=== PATIENT | male | born 1930 | race Caucasian/White ===

== ENCOUNTER → 2016-09-20 | Outpatient (CLI) | payer MEDICARE | LOC: LAB.O 13:08 | PROVIDERS: ATTEND Internal Medicine Nephrology | DX: N18.4 Chronic kidney disease, stage 4 (severe) (principal); N17.9 Acute kidney failure, unspecified; R53.81 Other malaise ==

== ENCOUNTER → 2016-11-02 | Outpatient (CLI) | payer MEDICARE | END | disposition home or self-care (01) | LOC: GMAB 16:43 | PROVIDERS: ATTEND Family Medicine | DX: R63.4 Abnormal weight loss (principal) ==

== ENCOUNTER → 2016-11-07 | Outpatient (CLI) | payer MEDICARE | END | disposition home or self-care (01) | LOC: GMAB 16:55 | PROVIDERS: ATTEND Family Medicine | DX: R06.02 Shortness of breath (principal) ==

== ENCOUNTER 2016-11-15 17:21 | Observation (INO) | payer MEDICARE ==
--- NOTE | 2016-11-15 18:00 | ED.PDOC ---
History of Present Illness - General Chief Complaint: Trauma Stated Complaint: FALL Time Seen by Provider: 11/15/16 17:54 Source: family Exam Limitations: other - PT DEMENTED - History of Present Illness Initial Comments: STATES SHE THINKS PT TRIPPED AND FELL ONTO HARDWOOD FLOORS. NO LOC Timing/Duration: other - TODAY Severity: mild Improving Factors: nothing Worsening Factors: nothing Associated Symptoms: denies symptoms Allergies/Adverse Reactions: Allergies NO KNOWN ALLERGY Allergy (Unverified 11/15/16 18:02) Home Medications: Ambulatory Orders Lasix 11/15/16 Potassium Chloride 11/15/16 Review of Systems - Review of Systems Constitutional: Denies: chills, fever, weakness EENTM: Denies: eye pain, blurred vision, ear pain, mouth pain Respiratory: Denies: cough, short of breath Cardiology: Denies: chest pain, palpitations, syncope Gastrointestinal/Abdominal: Denies: abdominal pain, nausea, vomiting Genitourinary: States: no symptoms reported. Denies: dysuria, hematuria Musculoskeletal: States: other - MILD PAIN R ELBOW. Denies: back pain, neck pain Skin: States: other - SKIN TEARS R TEMPORAL REGION, R MAXILLA, R ELBOW Neurological: States: no symptoms reported, other - FAMILY REPORTS PT AT BASELINE Hematologic/Lymphatic: States: no symptoms reported Past Medical History (General) - Patient Medical History Hx Dementia: Yes Hx Cardiac Disorders: Yes Hx Congestive Heart Failure: No Hx Diabetes: No - Social History Hx Tobacco Use: No Family Medical History - Family History Father Family History: No Known Living Status: Still Living Physical Exam - Physical Exam General Appearance: Alert, Comfortable, Frail Eye Exam: bilateral normal Ears, Nose, Throat: hearing grossly normal, other - SMALL SUPERFICIAL SKIN TEARS R TEMPORAL AREA, R MAXILLARY AREA, NO BONY DEFORMITY OR EVIDENCE OF OTHER HEAD TRAUMA Neck: non-tender, full range of motion, normal inspection Respiratory: chest non-tender, lungs clear, normal breath sounds, other Cardiovascular/Chest: regular rate, rhythm, no edema, no murmur, other - NO EVIDENCE OF TRAUMA CHEST OR BACK Gastrointestinal/Abdominal: normal bowel sounds, soft, no organomegaly Extremity: normal range of motion, non-tender, other - PELVIS STABLE, NL ROM HIPS KIMBERLY NTTP Neurologic: casting assistant II-XII nml as tested, alert, normal mood/affect, other - DEMENTED BUT NON FOCAL Skin Exam: other - OCC AREAS OF ECCHYMOSIS C/W ASPIRIN USE, SKIN TEAR R ELBOW NO SUTURABLE LACERATIONS Lymphatic: no adenopathy Progress - Progress Progress: 11/15/16 19:42 D/W FAMILY THEY ARE AGREEABLE WITH OBSERVATION AND REPEAT CT IN AM. STATE THEY ARE DOING WELL AT HOME WITH HOMEHEALTH ASSISTANCE - EKG/XRAY/CT CT Ordered: Yes - HEAD SHOWS CHRONIC R SIDED SUBDURAL. 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
--- NOTE | 2016-11-15 19:08 | CT ---
PROCEDURE: Head CLINICAL HISTORY: 85 years Male FALL WITH HEAD TRAUMA COMPARISON: None. TECHNIQUE: Contiguous axial images obtained through the brain without IV contrast. FINDINGS: The ventricles and sulci are prominent consistent with atrophic changes. Microvascular ischemic changes. Shallow low density collection around the right frontal convexity which measures approximately 0.6 cm in maximum thickness. The appearance suggests a chronic subdural hematoma. There does not appear to be significant mass effect. No acute hemorrhage. Atherosclerotic calcifications. Prominence of the turbinates in the anterior nasal passages versus polypoid lesions. Clinical evaluation could be obtained. No fluid or significant mucosal thickening in the visualized paranasal sinuses. No depressed calvarial fractures. IMPRESSION: Shallow low density collection around the right frontal convexity suggesting a chronic subdural hematoma. No significant mass effect is visualized. Prominence of the turbinates in the anterior nasal passages versus polypoid lesions. Clinical evaluation could be obtained. Electronically signed by: Tee Hdez MD 11/15/2016 7:08 PM SOFTWARE DEVELOPER INTERN
--- NOTE | 2016-11-15 19:19 | CT ---
PROCEDURE: Cervical Spine CLINICAL HISTORY: 85 years Male FALL WITH HEAD TRAUMA. Generalized neck and head pain. COMPARISON: None. TECHNIQUE: Contiguous axial images obtained through the cervical spine without IV contrast. Coronal and sagittal reformatted images obtained. FINDINGS: Straightening of the normal lordosis. Vertebral body alignment is unremarkable. No acute fractures. Degenerative changes of the uncovertebral joints and facets. At C2-3, there is moderate to severe right neural foraminal stenosis. There otherwise does not appear to be significant spinal or foraminal stenosis. Bilateral pleural effusions are partially visualized. Atherosclerotic calcifications. IMPRESSION: No acute cervical spinal fracture is identified. Bilateral pleural effusions are partially visualized. Electronically signed by: Tee Hdez MD 11/15/2016 7:19 PM ENVIRONMENTAL SERVICES PROJECT MANAGER
[2016-11-15] MEDS ORDERED: CHLORHEXIDINE GLUCONATE 4 % 15 ML UD TOP ONE (20:40)
--- NOTE | 2016-11-15 21:07 | HP ---
HISTORY OF PRESENT ILLNESS: This 85 year-old white male is placed in the hospital for overnight observation and reevaluation in the morning because of blunt head injury noted at home. He was found by his family to be on the floor with the right side of his head bloody with a laceration. The patient has no recollection or memory of what happened nor is it specifically known as to how he fell. He has had progressive worsening dementia in recent months which unfortunately contributes to very poor memory anyway. He has been followed closely by Dr. Schwartz in the clinic as well as Dr. Sorto, detective bureau chief, and Dr. Davidson, windows application packager. His family is very supportive and are concerned about his general condition. Last evening he complained of some shortness of breath during the night and resulted in the not getting much sleep. They will require some additional assistance in caring for the patient at home, otherwise Retirement Facility may be an option. PAST MEDICAL HISTORY: Otherwise unremarkable except as it relates to this worsening dementia. PAST SURGICAL HISTORY: 1. Coronary artery bypass grafting. 2. Heart valve replacement. CURRENT MEDICATIONS: Please refer to nurses' notes for an up to date list of verified home medications. ALLERGIES: NONE KNOWN. FAMILY HISTORY: Unremarkable. SOCIAL HISTORY: He has worked in the [employer] for many years. He stopped smoking 20 to 30 years ago. REVIEW OF SYSTEMS: Significant weight loss of about 35 pounds in the last 2 months because of just not eating. Noticeably confused though still pleasant. No significant fever or chills. HEENT: Difficult to evaluate because of the patient's inability to fully respond. LUNGS: Worsening shortness of breath noted. ABDOMEN: Poor appetite. No vomiting. GENITOURINARY: No dysuria. EXTREMITIES: Losing some of the muscle mass and having difficulty walking with falling evident. NEUROLOGIC: Worsening confusion recently. PHYSICAL EXAMINATION: VITAL SIGNS: Afebrile, pulse 78, blood pressure 116/64, respirations 18, pulse oximetry 94% on room air. Weight 68 kilos. GENERAL: The patient is pleasant though noticeably confused. He does seem to remember the names of family members and he knows where he is at, but time is another issue. He has about a 1 inch laceration right yarsani region which will be cleansed by the E. R. physician and closed by Steri-Strips with glue. HEENT: Pupils are equal, regular and reactive to light. Buccal mucosa is fairly moist. NECK: Has fairly good range of motion with no tenderness evident. CHEST: Lungs have some diminished breath sounds with few rhonchi in the lateral lung denise. CARDIOVASCULAR: Heart tones regular with approximate grade 2 systolic ejection murmur. ABDOMEN: Soft though somewhat tender and prominent with distention in the upper abdomen area. No organomegaly otherwise evident. EXTREMITIES: Fair muscle tone though somewhat decreased. NEUROLOGIC: No focal neurological deficits. He is able to move all extremities. Able to communicate. LABORATORY: No laboratory ordered. X-RAYS: CT of the head does reveal evidence of what appears to be a right sided subdural hematoma with the appearance of being chronic. ASSESSMENT: 1. Acute fall with blunt head injury with scalp laceration right temporal region and amnesia related to the circumstances of the fall. 2. Abnormal subdural hematoma, whether it is chronic subdural or an acute presentation is yet to be determined with followup suggested in the morning. 3. Frequent falls. 4. Worsening dementia with significant functional disability. 5. History of kidney insufficiency. 6. History of congestive heart failure with a BNP over 5,000 recently determined. 7. Weight loss. PLAN: The patient will be placed in the hospital for overnight neuro vitals and reevaluated in the morning. Await lab studies and urinalysis. Check chest x-ray because last CT scan of a few months ago revealed the possibility of the presence of pneumonia and followup suggested. Will have a repeat study of the head involving an MRI to more fully evaluate with greater details the fall and the subsequent head injury, and the presence of the subdural hematoma. Close followup with Dr. Schwartz in the outpatient department when clinically stable. #[id number] [facility]
[2016-11-15] MEDS ORDERED: ONDANSETRON INJ 4 MG/2 ML VIAL IV PRN (21:09)
[2016-11-15] MEDS ORDERED: SODIUM CHLORIDE 0.9% (FLUSH) 10 ML SYG IV PRN (21:09)
[2016-11-15] MEDS ORDERED: LEVALBUTEROL NEBS 1.25 MG/3 ML VIAL INH PRN (21:09)
[2016-11-15] MEDS ORDERED: MAGNESIUM HYDROXIDE 30 ML UD PO PRN (21:09)
[2016-11-15] MEDS ORDERED: ACETAMINOPHEN 325 MG TAB PO PRN (21:09)
[2016-11-15] MEDS ORDERED: IV SET AND CAP CHANGE INJ INJ SCH (21:30)
[2016-11-15] MEDS: SODIUM CHLORIDE 0.9% (FLUSH) 10 ML SYG IV SCH (22:41)
[2016-11-16] MEDS ORDERED: OMEPRAZOLE CAP 20 MG CAP PO SCH (06:30)
--- NOTE | 2016-11-16 07:10 | RAD ---
EXAM DESCRIPTION: Chest,1 View CLINICAL HISTORY: Pneumonia. Congestive heart failure.. FINDINGS/ IMPRESSION: Previous cardiac surgery with median sternotomy wires. Congestive heart failure. Cardiomegaly with vascular congestion and interstitial and faint developing alveolar infiltrate perihilar regions. No focal consolidation. No large pleural effusions Electronically signed by: Isaías Strickland MD 11/16/2016 7:09 AM CONCENTRATOR OPERATOR
[2016-11-16] MEDS ORDERED: SODIUM CHLORIDE 0.9% 10 ML VIAL IV PRN (07:28)
[2016-11-16] MEDS: SODIUM CHLORIDE 0.9% (FLUSH) 10 ML SYG IV SCH (10:17)
[2016-11-16] MEDS ORDERED: HALOPERIDOL LACTATE INJ 5 MG/ML VIAL IV ONE (10:55)
[2016-11-16] MEDS ORDERED: diphenhydrAMINE HCL 50 MG/ML VIAL IV ONE (10:56)
[2016-11-16 12:30] VITALS: BP 117/77; TEMP 97.9; O2SAT 97
--- NOTE | 2016-11-16 14:09 | MRI ---
EXAM DESCRIPTION: Brain w/oContrast CLINICAL HISTORY: 85 years Male, right sub dural hematoma-head injury. Compare CT COMPARISON: Head CT performed on November 15, 2016 TECHNIQUE: Multiplanar multisequence images of the brain were obtained without gadolinium contrast. FINDINGS: The study is slightly limited by motion artifact. Again seen is a tiny amount of extra-axial fluid layering over the right frontal lobe which is of low to intermediate T1, low T2 signal and likely represents a small amount of chronic subdural blood. This appears stable from the patient's previous head CT. No additional extra-axial fluid collections are present. There are irregular areas of increased T2/FLAIR signal involving periventricular white matter in both cerebral hemispheres. Similar changes are noted involving subcortical white matter in the left frontal lobe. The ventricles are of normal size and configuration. There is no posterior fossa lesion. Physiologic vascular flow voids are noted. There is mucoperiosteal thickening in the left maxillary sinus. IMPRESSION: Tiny amount of extra-axial fluid layering over the right frontal lobe, unchanged from the patient's previous head CT. This probably represents a small amount of chronic subdural blood without associated mass effect. No additional extra-axial hemorrhage. Chronic ischemic microvascular changes, otherwise unremarkable exam. If symptoms persist or worsen, follow-up noncontrast head CT is suggested for further evaluation. Electronically signed by: Magdaleno Paredes MD 11/16/2016 2:08 PM YARD CLERK
--- NOTE | 2016-11-16 16:58 | DS ---
SUPERVISING PHYSICIAN: Charlie Rivera M.D. DISCHARGE DIAGNOSIS: 1. Acute fall with blunt head injury with scalp laceration right temporal region and amnesia related to the circumstances of the fall. 2. Abnormal subdural hematoma whether it is chronic subdural or an acute presentation as determined by both CT and MRI. 3. History of frequent falls. 4. Worsening dementia with significant functional disability. 5. History of kidney insufficiency with acute kidney failure. 6. History of congestive heart failure with a BNP over 5,000. 7. Weight loss. HISTORY OF PRESENT ILLNESS: This is an 85 year-old male patient who was placed in the hospital overnight for observation and reevaluation due to blunt head injury that was noted at home. He was found by his family to be on the floor with the right side of his head bloody and with a laceration. The patient had no recollection or memory of what had happened nor is it specifically known as to how he fell. He has had progressively worsening dementia in the last few months and he has been followed by Dr. Schwartz as his primary care physician as well as Dr. Sorto, his legal analyst, and Dr. Davidson, his mold operator. Overnight he rested comfortably although he did get Ativan several times, but his condition did not deteriorate overnight. His H&H was 12 and 37.1. BUN 93, creatinine 4.73, serum osmolality 306.5, beta natriuretic peptide was greater than 5,000. CT of his head last night showed a shallow low density collection around the frontal convexity suggesting a chronic subdural hematoma. Cervical spine CT was negative for any acute cervical spinal fractures. As a followup this morning, a brain MRI was done that verified that this probably represented chronic subdural blood in the right frontal lobe that appeared stable from the previous head CT yesterday. The family discussed it at length with Dr. Schwartz and Lottie Mattson, Pattern Worker, and I spoke at length with the family and they have decided the patient is to be discharged home to [facility] care. DISCHARGE PLAN: The patient will be discharged home and will be followed by [facility]. He is to followup with Dr. Schwartz as needed to increase his activity as tolerated. His family was also given brochures on home care. DISCHARGE MEDICATIONS: Per hospice. 1. Coreg. 2. Plus those medications given through hospice care. Dr. Rivera is the collaborating physician and available for consultation. #[id number] [facility]
== END 2016-11-16 13:00 | disposition hospice, home (50) ==
LOC: ER 17:21 → MS 21:06
PROVIDERS: ADMIT Emergency Medicine; ATTEND Nurse Practitioner Acute Care
DX: S06.5X0A Traumatic subdural hemorrhage without loss of consciousness, initial encounter (principal); S01.81XA Laceration without foreign body of other part of head, initial encounter; R41.3 Other amnesia; F03.90 Unspecified dementia, unspecified severity, without behavioral disturbance, psychotic disturbance, mood disturbance, and anxiety; R40.2412 Glasgow coma scale score 13-15, at arrival to emergency department; R06.02 Shortness of breath; N17.9 Acute kidney failure, unspecified; I50.9 Heart failure, unspecified; M48.02 Spinal stenosis, cervical region; R63.4 Abnormal weight loss; R29.6 Repeated falls; J90 Pleural effusion, not elsewhere classified; W18.39XA Other fall on same level, initial encounter; Y92.009 Unspecified place in unspecified non-institutional (private) residence as the place of occurrence of the external cause; Z91.81 History of falling; Z68.21 Body mass index [BMI] 21.0-21.9, adult; Z95.1 Presence of aortocoronary bypass graft; Z95.2 Presence of prosthetic heart valve; Z87.891 Personal history of nicotine dependence
CPT/HCPCS: 36415; 70450; 70551; 71010; 72125; 80053; 81001; 83880; 85025; 94760 ×2; 96374; 96375; 96376; 99284; G0378; J1200; J1630; J2060 ×2